=== PATIENT | female | born 1995 | race Caucasian/White ===

== ENCOUNTER 2017-06-05 21:40 | Emergency (ER) | payer BC ==
[2017-06-05 21:47] VITALS: BP 116/73; PULSE 87; TEMP 98.1; BMI 22.6
[2017-06-05] MEDS ORDERED: DOXYCYCLINE HYCLATE 100 MG CAPSULE PO ONE ×2 (22:16)
--- NOTE | 2017-06-05 22:19 | PDOC ---
History of Present Illness - General Chief Complaint: Bite Stated Complaint: I HAVE A TICK IN MY LEG History Source: Patient Exam Limitations: No Limitations - History of Present Illness Initial Comments: 06/05/17 22:17 This is a 22-year-old female who comes in with her mother for evaluation of a tick embedded in her leg. Patient said she was out walking in the [place] today with and thinks it probably was just on her leg today. Patient denies any rash, body aches, fever, headaches or any other symptoms. PAST MEDICAL HISTORY: no significant history PAST SURGICAL HISTORY: no significant history FAMILY HISTORY: no pertinant history SOCIAL HISTORY: Pt lives with family and is employed. MEDICATIONS: reviewed ALLERGIES: As per nursing notes Review of Systems General: No fevers or chills, no weakness, no weight loss HEENT: No change in vision. No sore throat,. No ear pain CardioVascular: No chest pain or shortness of breath Respiratory:No cough, or wheezing. Gastrointestinal: no nausea, vomitting, diarrhea or constipation, No rectal bleeding Genitourinary: No dysuria, hematuria, or frequency Musculoskeletal: No joint or muscle pain or swelling Neurologic: No headache, vertigo, dizziness or loss of consciousness Psychiatric: nor depression Skin: No rashes or easy bruising, tick bite Endocrine: no increased thirst or abnormal weight change Allergic: no skin or latex allergy All other systems reviewed and normal GENERAL: The patient is awake, alert, and fully oriented, in no acute distress. HEAD: Normal with no signs of trauma. EYES: Pupils equal, round and reactive to light, extraocular movements intact, sclera anicteric, conjunctiva clear. EXTREMITIES: Normal range of motion, no edema., There is a tick embedded in the right lateral lower leg NEUROLOGICAL: Normal speech, normal gait. PSYCH: Normal mood, normal affect. SKIN: Warm, Dry, normal turgor, no rashes or lesions noted. Procedure note: Tick was removed with forceps without difficulty. Past History - Past Medical History Allergies/Adverse Reactions: Allergies Allergy/AdvReac Type Severity Reaction Status Date / Time Sulfa (Sulfonamide Allergy Verified 06/05/17 21:43 Antibiotics) Home Medications: Ambulatory Orders Levothyroxine [Synthroid -] 50 mcg PO DAILY 06/05/17 Psychiatric Problems: Yes (ptsd) Thyroid Disease: Yes - Psycho/Social/Smoking Cessation Hx Anxiety: Yes Suicidal Ideation: No Smoking History: Never smoked If you are a former smoker, when did you quit?: may 2016 *Physical Exam - Vital Signs Last Vital Signs Temp Pulse Resp BP Pulse Ox 98.1 F 87 16 116/73 100 06/05/17 21:44 06/05/17 21:44 06/05/17 21:44 06/05/17 21:44 06/05/17 21:44 *DC/Admit/Observation/Transfer Diagnosis at time of Disposition: Tick bite Qualifiers: Encounter type: initial encounter Qualified Code(s): W57.XXXA - Bitten or stung by nonvenomous insect and other nonvenomous arthropods, initial encounter - Discharge Dispostion Disposition: HOME Condition at time of disposition: Improved Admit: No - Patient Instructions Additional Instructions: Return to the emergency department immediately with ANY new, persistent or worsening symptoms. Continue any medications as previously prescribed by your physician. You should follow up with your primary doctor as soon as possible regarding today's emergency department visit. . Please make sure your doctor reviews the results of your emergency evaluation. Thank you for coming to the Emergency Department today for your care. It was a pleasure to see you today. Please note that your evaluation is INCOMPLETE until you follow-up with your doctor.
== END 2017-06-05 22:20 | disposition home or self-care (01) ==
LOC: FER 21:40
DX: S80.861A Insect bite (nonvenomous), right lower leg, initial encounter (principal); W57.XXXA Bitten or stung by nonvenomous insect and other nonvenomous arthropods, initial encounter; Y93.9 Activity, unspecified; Y92.9 Unspecified place or not applicable
CPT/HCPCS: 99281-25

== ENCOUNTER 2017-08-21 16:36 | Emergency (ER) | payer BC ==
[2017-08-21 16:46] VITALS: BP 113/57; PULSE 90; TEMP 98.5; BMI 18.7
--- NOTE | 2017-08-21 16:50 | PDOC ---
History of Present Illness - General History Source: Family Exam Limitations: No Limitations - History of Present Illness Initial Comments: 08/21/17 17:36 The patient is a 22-year-old female accompanied by sister, with a significant past medical history of ptsd, anxiety, depression, and thyroid disease who presents to the ED with weakness today. As per sister, the patient has not been eating or drinking much for the past three months and she is concerned that she is dehydrated. She reports that the pt has lost 45 pounds in the last three months. The pt does have a psych history and has been seen at [facility], but is not being followed anyone as of now or taking any medications. The patient states that has been feeling very weak and felt like she was going to pass out today. She does report getting blood drawn at her PCPs office today and not having anything to eat. She denies any loss of consciousness or recent falls. She denies any fever, chills, nausea, vomiting, diarrhea, or abdominal pain. <Deena Christian - Last Filed: 08/21/17 17:46> <Vel Ashby - Last Filed: 08/21/17 18:01> - General Chief Complaint: Weakness Stated Complaint: wekness,dehydration Time Seen by Provider: 08/21/17 16:44 Past History <Deena Christian - Last Filed: 08/21/17 17:46> - Past Medical History Psychiatric Problems: Yes (ptsd,anxiety,depression,on councelling) Thyroid Disease: Yes - Suicide/Smoking/Psychosocial Hx Smoking History: Former smoker Have you smoked in the past 12 months: No If you are a former smoker, when did you quit?: 2016 Information on smoking cessation initiated: No Hx Alcohol Use: Yes (occasional) Drug/Substance Use Hx: No Substance Use Type: Marijuana <Vel Ashby - Last Filed: 08/21/17 18:01> - Past Medical History Allergies/Adverse Reactions: Allergies Allergy/AdvReac Type Severity Reaction Status Date / Time Sulfa (Sulfonamide Allergy Verified 08/21/17 16:39 Antibiotics) Home Medications: Ambulatory Orders Levothyroxine [Synthroid -] 50 mcg PO DAILY 06/05/17 Omeprazole 0 mg PO ASDIR 08/21/17 Review of Systems - Review of Systems Able to Perform ROS?: Yes Comments:: 08/21/17 17:37 CONSTITUTIONAL: Present: generalized weakness, loss of appetite Absent: fever, chills, diaphoresis, generalized weakness, malaise HEENT: Absent: rhinorrhea, nasal congestion, throat pain, throat swelling, difficulty swallowing, mouth swelling, ear pain, eye pain, visual Changes CARDIOVASCULAR: Present: light headedness Absent: chest pain, syncope, palpitations, irregular heart rate, peripheral edema RESPIRATORY: Absent: cough, shortness of breath, dyspnea with exertion, orthopnea, wheezing, stridor, hemoptysis GASTROINTESTINAL: Absent: abdominal pain, abdominal distension, nausea, vomiting, diarrhea, constipation, melena, hematochezia GENITOURINARY: Absent: dysuria, frequency, urgency, hesitancy, hematuria, flank pain, genital pain MUSCULOSKELETAL: Absent: myalgia, arthralgia, joint swelling SKIN: Absent: rash, itching, pallor HEMATOLOGIC/IMMUNOLOGIC: Absent: easy bleeding, easy bruising, lymphadenopathy, frequent infections ENDOCRINE: Absent: unexplained weight gain, unexplained weight loss, heat intolerance, cold intolerance NEUROLOGIC: Absent: headache, focal weakness or paresthesias, unsteady gait, seizure, mental status changes, bladder or bowel incontinence PSYCHIATRIC: Absent: anxiety, depression, suicidal or homicidal ideation, hallucinations. <Deena Christian - Last Filed: 08/21/17 17:46> *Physical Exam - Vital Signs Last Vital Signs Temp Pulse Resp BP Pulse Ox 98.5 F 90 18 113/57 100 08/21/17 16:37 08/21/17 16:37 08/21/17 16:37 08/21/17 16:37 08/21/17 16:37 <Deena Christian - Last Filed: 08/21/17 17:46> - Vital Signs Last Vital Signs Temp Pulse Resp BP Pulse Ox 98.5 F 90 18 113/57 100 08/21/17 16:37 08/21/17 16:37 08/21/17 16:37 08/21/17 16:37 08/21/17 16:37 <Vel Ashby - Last Filed: 08/21/17 18:01> Medical Decision Making - Medical Decision Making 08/21/17 17:21 Dr. Griffin was paged and notified via phone service. <Deena Christian - Last Filed: 08/21/17 17:46> - Medical Decision Making 08/21/17 17:50 The patient was brought in by her sister, who was interviewed separately. The patient lives with her sister and her mother at home. She is unemployed, had previously been working as a structural engineering technician. According to her sister, she has not been eating and drinking very little fluids, although she has not observed her sister vomiting or purging. She states that her relationship with her sister is good, as is her mother's. There've been no prior suicide attempts or ideations. She has been treated briefly as a psychiatric inpatient at [facility] and on an outpatient basis at [facility] in [place]. However, she has no ongoing psychiatric care and is not seeing a counselor at present. She is on no psychiatric medication. Psychiatric assessment for completed by the nurse was of concern for suicidal risk, although the patient vehemently denied wanting to hurt herself or others. Dr. Griffin was contacted, agreed to evaluate the patient after admission Before full evaluation the patient left the emergency room on her own. She was followed by staff, urging her to return, that it was dangerous for her to leave. However, she refused to return and the police were called. 08/21/17 17:54 <Vel Ashby - Last Filed: 08/21/17 18:01> *DC/Admit/Observation/Transfer - Attestations Scribe Attestion: 08/21/17 17:39 Documentation prepared by Deena Christian, acting as medical communication specialist for Vel Ashby MD. <Deena Christian - Last Filed: 08/21/17 17:46> <Vel Ashby - Last Filed: 08/21/17 18:01> Diagnosis at time of Disposition: Eloped, Eating disorder Depression Qualifiers: Depression Type: unspecified Qualified Code(s): F32.9 - Major depressive disorder, single episode, unspecified - Discharge Dispostion Disposition: ELOPED
[2017-08-21 17:23] LABS: PH,URINE 5.5 (4.5-8); URINE APPEARANCE Clear; URINE BILIRUBIN 1+ (NEGATIVE); URINE BLOOD Negative (NEGATIVE); URINE GLUCOSE (UA) Negative (NEGATIVE); URINE KETONE Trace (NEGATIVE); URINE LEUK ESTERASE Negative (NEGATIVE); URINE NITRITE Negative (NEGATIVE); URINE UROBILINOGEN 0.2 (0.2-1.0)
[2017-08-21 17:25] LABS: URINE COLOR YELLOW; URINE PROTEIN 1+ (NEGATIVE)
[2017-08-21 18:40] LABS: CALCIUM OXALATE CRYSTALS FEW /hpf (NONE SEEN); URINE BACTERIA FEW /hpf (NEGATIVE); URINE RBC 0-2 /hpf (0-3)
== END 2017-08-21 17:40 | disposition left against medical advice (07) ==
LOC: FER 16:36
DX: Z53.21 Procedure and treatment not carried out due to patient leaving prior to being seen by health care provider (principal); F43.10 Post-traumatic stress disorder, unspecified; F41.8 Other specified anxiety disorders
CPT/HCPCS: 81003; 81015; 84703; 99281-25